=== PATIENT | female | born 1980 | race Caucasian/White ===

== ENCOUNTER 2017-01-12 09:19 | Emergency (ER) | payer OTHER ==
[~2017-01-12] VITALS: Ht 170.2 cm; Wt 111.1 kg
--- OUTSIDE RECORDS SUMMARY | 2017-01-12 09:31 | External Medical Summary Rpt ---
Author Author ALEKSANDR Address Unknown Phone Purpose Continuity of Care Document - through 2016
--- OUTSIDE RECORDS SUMMARY | 2017-01-12 09:31 | External Medical Summary Rpt ---
Author Author ALEKSANDR Dotson, [employer] Organization [employer] Address Unknown Phone Unavailable
--- OUTSIDE RECORDS SUMMARY | 2017-01-12 09:31 | External Medical Summary Rpt ---
Author Author [employer] Organization [employer] Address Unknown Phone Unavailable Purpose Continuity of Care Document - through 2016
--- OUTSIDE RECORDS SUMMARY | 2017-01-12 09:31 | External Medical Summary Rpt ---
Demographics Preferred Language Citizen Of [place] Marital Status Unknown Uatsdin Affiliation Unknown Race Unknown Ethnic Group Unknown Author Author , HARIKA BRANDON Address Unknown Phone Immunization Unable to retrieve immunization data due to connection failure with Immunization Registry. Please try again later.
--- OUTSIDE RECORDS SUMMARY | 2017-01-12 09:31 | External Medical Summary Rpt ---
Demographics Preferred Language Bhutanese Marital Status Unknown Rastafarian Affiliation Unknown Race Unknown Ethnic Group Unknown Author Author , HARIKA BRANDON Address Unknown Phone Immunization Unable to retrieve immunization data due to connection failure with Immunization Registry. Please try again later.
--- NOTE | 2017-01-12 10:02 | Urgent Treatment Center Report ---
History of Present Issue Date/Time Seen by Provider 01/12/17 0942 Visit Reason Pt arrived:Walked Presenting Problem:SINUS CONGESTION, SORE THROAT, COUGH STATES COMPLETED ZPACK LAST WEDNESDAY Location if Accident: Onset of symptoms date/time:/ or onset unknown for:MEDICAL HX UNKNOWN Have you (or family members/close friends) recently traveled outside the [place]? N If Yes, where/when: Have you had exposure to infectious disease within the past month? TB? Other? Specify: Patient state that she has been sick for around 2 weeks States that she was seen at the [facility] and given a Zpack state that she did began to feel better and now about 3 days ago she began to feel worse. Stats that mucous is now green and she is having sinus pain and pressure again and sore throat. States that she came in today because the cough is now keeping her up at night ALLERGIES Coded Allergies: codeine (01/12/17) Home Medications Reported Medications No Known Home Medications History Medical History General CAD? No Angina: No [place]: No Hypertension? No Hyperlipidemia? No CHF? No DVT? No PE? No COPD? No Asthma? Yes Anemia? No GERD? No Gastric ulcers? No GI Bleed? No Hernia? No Thyroid Problems? No Hypothyroidism? No CVA? No Seizures? No Diabetes? No Renal Insuffiency? No UTI? Yes Stones? No BPH? No GB Disease: Yes Nephritic Syndrome? No Asplenia? No Hepatitis? No Sickle Cell Disease? No Arthritis? No Migraines? No Cataracts? No Glaucoma? No MRSA? No HIV? No TB? No Anxiety? No Depression? No Cancer? 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 Respiratory cough Physical Exam Vital Signs Vital Signs Date Time Temp Pulse Resp B/P Pulse O2 O2 Flow FiO2 Ox Delivery Rate 01/12 0936 98.1 94 16 144/88 96 General Appearance Appears ill sitting on exam table Ear, Nose, Throat sinus pain/drainage, throat red irritated, tenderness in maxillary sinuses with green drainage Respiratory Status Yes: trachea midline, chest symmetrical, non tender chest. No: respiratory distress. 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 No Results/Orders Current Medication Orders Sig/Maren Start time Last Medication Dose Route Stop Time Status Admin Methylprednisolone 125 MG ONCE ONE 01/12 1000 DC Sodium Succinate IM 01/12 1001 Progress [facility] Progress Notes Date 01/12/17 Time 1009 Comment Patient state that she is not allergic to any medication except for codiene, confirmed twice and chart updated Departure Departure Time of Disposition 0959 Disposition DC Home or Self Care(routine) Clinical Impression Primary Impression: Sinusitis Qualifiers: Sinusitis location: maxillary Chronicity: unspecified Qualified Code: J32.0 - Chronic maxillary sinusitis Condition STABLE Patient Instructions DI for Sinusitis, Sinus Headache, Sinusitis Additional Instructions Start antibiotic. It may take 2-3 days to notice much improvement so be sure to use conservative measures as discussed for symptoms Flonase 2 spray in each nostril daily to help with nasal congestion, sinus an ear pressure/inflammation Lots of Fluids Sleep elevated Humidifer/vaporizer Discharge Counseling Counseled pt/family regarding diagnosis, medications/RX, home care, follow up needs Prescriptions Current Visit Scripts Amoxicillin/Potassium Clav (Augmentin 875-125 Tablet) 1 EACH PO BID #14 TAB D-METHORPHAN HB/P-EPD HCL/BPM (Bromfed Dm Cough Syrup) 10 ML PO Q4HP PRN cough #150 SYR Fluticasone Propionate (Flonase 50 Mcg Nasal [place]) 2 SPRAY NA DAILY #1 BOT at 1009
--- NOTE | 2017-01-12 10:02 | Urgent Treatment Center Report ---
History of Present Issue Date/Time Seen by Provider 01/12/17 0942 Visit Reason Pt arrived:Walked Presenting Problem:SINUS CONGESTION, SORE THROAT, COUGH STATES COMPLETED ZPACK LAST WEDNESDAY Location if Accident: Onset of symptoms date/time:/ or onset unknown for:MEDICAL HX UNKNOWN Have you (or family members/close friends) recently traveled outside the [place]? N If Yes, where/when: Have you had exposure to infectious disease within the past month? TB? Other? Specify: Patient state that she has been sick for around 2 weeks States that she was seen at the [facility] and given a Zpack state that she did began to feel better and now about 3 days ago she began to feel worse. Stats that mucous is now green and she is having sinus pain and pressure again and sore throat. States that she came in today because the cough is now keeping her up at night ALLERGIES Coded Allergies: codeine (01/12/17) Home Medications Reported Medications No Known Home Medications History Medical History General CAD? No Angina: No [place]: No Hypertension? No Hyperlipidemia? No CHF? No DVT? No PE? No COPD? No Asthma? Yes Anemia? No GERD? No Gastric ulcers? No GI Bleed? No Hernia? No Thyroid Problems? No Hypothyroidism? No CVA? No Seizures? No Diabetes? No Renal Insuffiency? No UTI? Yes Stones? No BPH? No GB Disease: Yes Nephritic Syndrome? No Asplenia? No Hepatitis? No Sickle Cell Disease? No Arthritis? No Migraines? No Cataracts? No Glaucoma? No MRSA? No HIV? No TB? No Anxiety? No Depression? No Cancer? 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 Respiratory cough Physical Exam Vital Signs Vital Signs Date Time Temp Pulse Resp B/P Pulse O2 O2 Flow FiO2 Ox Delivery Rate 01/12 0936 98.1 94 16 144/88 96 General Appearance Appears ill sitting on exam table Ear, Nose, Throat sinus pain/drainage, throat red irritated, tenderness in maxillary sinuses with green drainage Respiratory Status Yes: trachea midline, chest symmetrical, non tender chest. No: respiratory distress. 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 No Results/Orders Current Medication Orders Sig/Maren Start time Last Medication Dose Route Stop Time Status Admin Methylprednisolone 125 MG ONCE ONE 01/12 1000 DC Sodium Succinate IM 01/12 1001 Progress [facility] Progress Notes Date 01/12/17 Time 1009 Comment Patient state that she is not allergic to any medication except for codiene, confirmed twice and chart updated Departure Departure Time of Disposition 0959 Disposition DC Home or Self Care(routine) Clinical Impression Primary Impression: Sinusitis Qualifiers: Sinusitis location: maxillary Chronicity: unspecified Qualified Code: J32.0 - Chronic maxillary sinusitis Condition STABLE Patient Instructions DI for Sinusitis, Sinus Headache, Sinusitis Additional Instructions Start antibiotic. It may take 2-3 days to notice much improvement so be sure to use conservative measures as discussed for symptoms Flonase 2 spray in each nostril daily to help with nasal congestion, sinus an ear pressure/inflammation Lots of Fluids Sleep elevated Humidifer/vaporizer Discharge Counseling Counseled pt/family regarding diagnosis, medications/RX, home care, follow up needs Prescriptions Current Visit Scripts Amoxicillin/Potassium Clav (Augmentin 875-125 Tablet) 1 EACH PO BID #14 TAB D-METHORPHAN HB/P-EPD HCL/BPM (Bromfed Dm Cough Syrup) 10 ML PO Q4HP PRN cough #150 SYR Fluticasone Propionate (Flonase 50 Mcg Nasal [place]) 2 SPRAY NA DAILY #1 BOT at 1009
[2017-01-12] MEDS ORDERED: AUGMENTIN 875-1 EACH PO (10:08)
[2017-01-12] MEDS ORDERED: BROMFED DM COU118 ML PO (10:08)
[2017-01-12] MEDS ORDERED: FLONASE 50 MCG16 GM (10:08)
[2017-01-12 10:34] VITALS: BP 144/88
== END 2017-01-12 10:34 | disposition home or self-care (01) ==
LOC: UTC 09:19
DX: H69.82 Other specified disorders of Eustachian tube, left ear (principal)

== ENCOUNTER 2017-01-22 20:02 | Emergency (ER) | payer OTHER ==
[~2017-01-22] VITALS: Ht 170.2 cm; Wt 108.9 kg
[~2017-01-22 20:02] MED LIST: AUGMENTIN 875-1 EACH PO; BROMFED DM COU118 ML PO; FLONASE 50 MCG16 GM
--- OUTSIDE RECORDS SUMMARY | 2017-01-22 20:09 | External Medical Summary Rpt ---
Author Author , ALEKSANDR BRANDON Address Unknown Phone [email or web address] Immunization Name Date Rout CVX Reac Dose Comm Prov Is Faci e tion ent ider Refu lity Give sed n Infl 11-1 Intr 140 0.5 Hist KHAF No RITE uenz 2-20 amus mL oric REBEKAH AID0 a, 16 cula al AYMA 4041 P-Fr r Info N ee rmat ion - Sour ce Unsp ecif ied
--- OUTSIDE RECORDS SUMMARY | 2017-01-22 20:09 | External Medical Summary Rpt ---
Author Author , ALEKSANDR BRANDON Address Unknown Phone [email or web address] Immunization Name Date Rout CVX Reac Dose Comm Prov Is Faci e tion ent ider Refu lity Give sed n Infl 11-1 Intr 140 0.5 Hist KHAF No RITE uenz 2-20 amus mL oric REBEKAH AID0 a, 16 cula al AYMA 4041 P-Fr r Info N ee rmat ion - Sour ce Unsp ecif ied
[2017-01-22] MEDS ORDERED: ZOLOFT 50MG TAB50 MG PO (20:10)
[2017-01-22] MEDS ORDERED: MEDROL 4MG. DOSE4 MG PO (20:43)
--- NOTE | 2017-01-22 20:43 | Urgent Treatment Center Report ---
History of Present Issue Date/Time Seen by Provider 01/22/17 2019 Visit Reason Pt arrived:Walked Presenting Problem:PT STATES SORE THROAT FOR A WEEK. STATES PAIN GOES INTO HER LEFT EAR. STATES HURTS TO SWALLOW Location if Accident: Onset of symptoms date/time:/ or onset unknown for:MEDICAL HX UNKNOWN Have you (or family members/close friends) recently traveled outside the [place]? N If Yes, where/when: Have you had exposure to infectious disease within the past month? TB? Other? Specify: c/o sore throat only on left and left ear pain. "long story" pt reports. Started w/ cough, sore throat approx one month ago. "Didn't feel like this. That was the typical burning irritating sore throat." Treated w/ zpack and medrol dose pack. Reports she improved "briefly" and within 4 days, her cough returned. "Just a cough. Like a tickle in my throat kind of cough. I felt fine though otherwise. Just worse at night and figured that was normal." Tried waiting it out. Returned to [facility] 2 weeks ago due to cough. Prescribed bromfed, augmentin and given solumedrol injection. Reporting solu-medrol "made me crazy. I was so wired and didn't sleep for 48 hours." Sore throat started back one week ago now despite those medications "but different". Worse at night and in the evening. Only on the left. Feels more "between my ear and throat" and not in throat. Worse w/ swallowing, yawning. Radiates to ear at times. Crackling and popping in ear intermittently. Continues to have PND but little to no cough since starting zyrtec 3-4 days ago. Denies fever, malaise. "I still feel fine". Source patient Exam Limitations no limitations ALLERGIES Coded Allergies: codeine (01/12/17) Home Medications Active Scripts Fluticasone Propionate (Flonase 50 Mcg Nasal [place]) 2 SPRAY NA DAILY #1 BOT Prov: 01/12/17 Reported Medications Sertraline Hcl (Zoloft 50MG) 25 MG PO DAILY History Medical History General CAD? No Angina: No [place]: No Hypertension? No Hyperlipidemia? No CHF? No DVT? No PE? No COPD? No Asthma? Yes Anemia? No GERD? No Gastric ulcers? No GI Bleed? No Hernia? No Thyroid Problems? No Hypothyroidism? No CVA? No Seizures? No Diabetes? No Renal Insuffiency? No UTI? Yes Stones? No BPH? No GB Disease: Yes Nephritic Syndrome? No Asplenia? No Hepatitis? No Sickle Cell Disease? No Arthritis? No Migraines? No Cataracts? No Glaucoma? No MRSA? No HIV? No TB? No Anxiety? No Depression? No Cancer? No More? 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 denies: ear discharge, nose congestion, mouth pain, mouth swelling, throat swelling. Respiratory see HPI, denies shortness of breath Gastrointestinal denies no symptoms reported Skin denies rash Psychiatric/Neurological denies headache Physical Exam Vital Signs Vital Signs Date Time Temp Pulse Resp B/P Pulse O2 O2 Flow FiO2 Ox Delivery Rate 01/22 2046 97.8 87 20 137/81 97 01/22 2009 97.8 87 20 137/81 97 General Appearance normal appearance, no apparent distress Eye Exam - bilateral eye normal exam Ear, Nose, Throat hearing grossly normal, normal pharynx, boggy turbinates, mo EACs normal, right TM normal, left TM normal except slightly increased amount of clear fluid behind TM w/ mild TM bulging Neck normal inspection, supple, full range of motion, tenderness left lateral consistent w/ approx location eustachian tube Respiratory Status No: respiratory distress, productive cough, non productive cough. Lung Sounds anterior: lungs clear. posterior: lungs clear. bilateral: lungs clear. Cardiovascular regular rate/rhythm, no peripheral edema, no murmur Neurologic alert, oriented x 3 Mental status normal mood/affect Skin normal color, warm/dry Lymphatic no adenopathy Medical Decision Making LABS/Meds/Orders Pt receiving controlled substance in ED? No Results/Orders Current Medication Orders Sig/Maren Start time Last Medication Dose Route Stop Time Status Admin Prednisone 40 MG ONCE ONE 01/22 2045 DC 01/22 PO 01/22 Prednisone 0 .STK-MED ONE 01/22 2041 DC .ROUTE Departure Departure Time of Disposition 2037 Disposition DC Home or Self Care(routine) Clinical Impression Primary Impression: Eustachian tube dysfunction Qualifiers: Laterality: left Qualified Code: H69.82 - Other specified disorders of Eustachian tube, left ear Secondary Impressions: Environmental allergies Condition STABLE Referrals Avelino COOL,Darron Pardo Return to [facility] this weekend for new or worsening symptoms. If no improvement, call Dr. You's office Wednesday for follow up appointment. Patient Instructions DI for Allergic Rhinitis, DI for Eustachian Tube Dysfunction-Adult Additional Instructions Continue Flonase 2 sprays each nostril daily Continue Zyrtec Sleep elevated Warm salt water gargles Warm fluids to drink Start steroids tomorrow since no pharmacy is open tonight. You had an initial dose here in the clinic tonight. Try decongestant. If you feel like these make your heart race, stop them immediately. No sign of a bacterial infection. Be sure to follow up if you start to feel bad or run a fever. If you decide you want to try viscous lidocaine, call the clinic. I will be here all weekend. Discharge Counseling Counseled pt/family regarding diagnosis, medications/RX, home care, follow up needs Prescriptions Current Visit Scripts Methylprednisolone (Medrol Dose [place]) 4 MG PO UD #1 RODOLFO TAKE DIRECTED ON PACKAGING at 6341
[2017-01-22 20:46] VITALS: BP 137/81
[2017-01-30] MEDS ORDERED: TESSALON PERLE100 M1 PO (18:24)
== END 2017-01-22 20:46 | disposition home or self-care (01) ==
LOC: UTC 20:02
DX: H69.82 Other specified disorders of Eustachian tube, left ear (principal)